=== PATIENT | male | born 1980 | race Caucasian/White ===

== ENCOUNTER 2017-04-30 20:05 | Emergency (ER) | payer OTHER ==
[~2017-04-30] VITALS: Ht 175.3 cm; Wt 102.1 kg
[~2017-04-30 20:05] MED LIST: FIORICET TABLE1 EACH PO; GABAPENTIN250 MG/51 PO; Z MICARDIS HCT PO; Z PROPRANOLOL HCL PO; Z.0.NEXIUM40 MG PO; Z.0.PAXIL20 MG PO; Z.0.PRAVACHOL40 MG PO
[2017-04-30] MEDS ORDERED: FAMOTIDINE 20 MG/2 ML VIAL IV STA (20:26)
[2017-04-30] MEDS ORDERED: DIPHENHYDRAMINE HCL INJ 50 MG/ML VIAL IV ONE (20:30)
[2017-04-30] MEDS ORDERED: METHYLPREDNISOLONE SOD SUCC 125 MG/2ML VIAL IV ONE (20:30)
[2017-04-30 22:01] VITALS: BP 134/79
== END 2017-04-30 21:33 | disposition home or self-care (01) ==
LOC: FSED 20:05
DX: T78.40XA Allergy, unspecified, initial encounter (principal); J98.01 Acute bronchospasm
CPT/HCPCS: 96374; 96375; 99283; J1200; J2930

== ENCOUNTER 2017-08-25 17:56 | Emergency (ER) | payer OTHER ==
[~2017-08-25] VITALS: Ht 175.3 cm; Wt 95.3 kg
[2017-08-25] MEDS ORDERED: PREDNISONE 20 MG TAB PO ONE (18:15)
[2017-08-25] MEDS ORDERED: KETOROLAC TROMETHAMINE 30 MG/ML VIAL IM PRN (18:15)
== END 2017-08-25 18:40 | disposition home or self-care (01) ==
LOC: FSED 17:56
DX: M79.672 Pain in left foot (principal); M10.072 Idiopathic gout, left ankle and foot; I10 Essential (primary) hypertension
CPT/HCPCS: 96372; 99283

== ENCOUNTER 2021-09-24 12:37 | Emergency (ER) | payer OTHER ==
[~2021-09-24] VITALS: Ht 175.3 cm; Wt 93.0 kg
[2021-09-24] MEDS ORDERED: IBUPROFEN 200 MG TAB PO ONE (13:00)
[2021-09-24] MEDS ORDERED: CEFTRIAXONE 1 GM VIAL IM ONE (13:00)
[2021-09-24] MEDS ORDERED: ACETAMINOPHEN 325 MG TAB PO ONE (13:00)
[2021-09-24] MEDS ORDERED: AUGMENTIN 500-1 EACH PO (13:07)
[2021-09-24] MEDS ORDERED: IBUPROFEN200 MG PO (13:07)
[2021-09-24] MEDS ORDERED: IBUPROFEN 600 MG TAB ONE (13:29)
== END 2021-09-24 13:38 | disposition home or self-care (01) ==
LOC: FSED 12:53
DX: K04.7 Periapical abscess without sinus (principal); K02.9 Dental caries, unspecified
CPT/HCPCS: 99282; J0696